=== PATIENT | female | born 1980 | race Two or more races ===

== ENCOUNTER 2018-09-21 14:51 | Outpatient (CLI) | payer OTHER | END 2018-09-21 14:59 | disposition home or self-care (01) | LOC: RAD 501 14:51 | DX: J44.1 Chronic obstructive pulmonary disease with (acute) exacerbation (principal) ==

== ENCOUNTER 2018-09-29 08:22 | Day surgery (SDC) | payer OTHER ==
[~2018-09-29 08:22] MED LIST: CLA 1,000 MG1000 MG PO; CRESTOR10 MG PO; GREEN TEA1 EACH PO; PROBIOTIC1 EAC2 PO; TECFIDERA240 MG PO; VITAMIN D2000 UNI1 PO
== END 2018-09-29 14:45 | disposition home or self-care (01) ==
LOC: CIR.AMB 08:22
DX: N84.0 Polyp of corpus uteri (principal)

== ENCOUNTER 2025-07-05 06:00 | Day surgery (SDC) | payer OTHER ==
[~2025-07-05 06:00] MED LIST changes: +LEXAPRO5 MG PO; +ZETIA10 MG PO; +ZYRTEC10 M3 PO
[2025-07-05] MEDS ORDERED: LEVALBUTEROL HCL 0.63 MG/3 ML SOLUTION IH ONE ×2 (06:38→09:59)
[2025-07-05] MEDS ORDERED: POVIDONE-IODINE 118 ML BOTT TOP ONE (07:10)
[2025-07-05] MEDS ORDERED: SUGAMMADEX SODIUM 200 MG/2 ML VIAL IV ONE (07:32)
[2025-07-05] MEDS ORDERED: PROMETHAZINE HCL 50 MG/ML AMPUL IM ONE (08:45)
[2025-07-05] MEDS ORDERED: ONDANSETRON HCL 4 MG in 0.9 % SODIUM CHLORIDE 50 ML IV PRN (08:45)
== END 2025-07-05 11:50 | disposition home or self-care (01) ==
LOC: CIR.AMB 06:00
PROVIDERS: ATTEND Obstetrics & Gynecology
DX: N84.0 Polyp of corpus uteri (principal)